=== PATIENT | male | born 1955 | race Caucasian/White ===

== ENCOUNTER 2017-03-04 12:11 | Emergency (ER) | payer OTHER ==
[~2017-03-04] VITALS: Ht 190.5 cm; Wt 129.6 kg
[~2017-03-04 12:11] MED LIST: ATOR10TA66 PO; DABI150C PO; FAMO20TA4 PO; FLEC100T2 PO; METO25TA99 PO; PANT40TA3 PO; SILD20TA14 PO
[2017-03-04 12:14] VITALS: BP 139/83; PULSE 82; RESP 18; O2SAT 96
--- NOTE | 2017-03-04 12:30 | ED.REPORT ---
HPI-Bite: Human/Animal Date of Service March 04, 2017 ED Provider: Doc,Ed MD History of Present Illness: on scene, works as a market stall vendor, and a dog bite him on the left lower leg. around 1145 today. last tdap unknown. primary care is doroteo. normally healthy. pain 04/08. Nursing Notes Stated Complaint: DOG BITE Chief Complaint: Extremity Trauma Nursing Notes Reviewed: Yes Allergies: Coded Allergies: No Known Allergies (Verified Allergy, Unknown, 03/04/17) Scheduled Atorvastatin Calcium (Atorvastatin Calcium) 10 Mg Tablet 10 MG PO DAILY Dabigatran Etexilate Mesylate (Pradaxa) 150 Mg Capsule 150 MG PO BID Flecainide Acetate (Flecainide Acetate) 100 Mg Tablet 150 MG PO BID Metoprolol Succinate ER (Metoprolol Succinate ER) 25 Mg Tab.er.24h 25 MG PO BID Pantoprazole DR (Pantoprazole DR) 40 Mg Tablet.dr 40 MG PO DAILY Scheduled PRN Famotidine (Famotidine) 20 Mg Tablet 20 MG PO DAILY PRN PRN heartburn Miscellaneous Medications Sildenafil Citrate (Sildenafil) 20 Mg Tablet 40 MG PO General Time Seen by MD: 12:30 Chief Complaint Animal bite, Dog bite Hx Obtained From: Patient Onset Occurred: 1 - 4 hours ago Location: : Leg left Risk Factors Rabies Risk Stratification Dog - low risk Domestic animal Bite Infection Risk: Below knee bite Deep puncture Past Medical History Past Medical History Notes: has afib for a while, hx of a stroke 12/2013' hx of chronic pain Past Surgical History knee times 3, ankle, right and left hip, rotator cuff, finger time 2, carpal tunnel Smoking History Former Smoker Social History Alcohol Use: In recovery Drug Use: Denies drug use Occupation , lives in [place]. 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 Ambulatory Status Independent Review of Systems Basic Review of Systems Eyes: Vision NL, No discharge : No dysuria, No frequency Psychiatric: Normal thought content Physical Exam Vital Signs Vital Signs (First) Date Time Temp Pulse Resp B/P Pulse Ox O2 Delivery O2 Flow Rate FiO2 03/04/17 12:14 36.7 82 18 139/83 96 Room Air Initial VS: Reviewed, Vital signs normal Head / Eyes: Atraumatic, Normocephalic, PERRL Back: No CVA tenderness Psychiatric: Mood/affect normal, Behavior normal, Normal thought content General/Constitutional: Awake, Alert, No acute distress, Well appearing, Well developed, Well hydrated, Well nourished, Cooperative, Not toxic appearing dog bite on left lower leg. 3 small puncture wounds with laceration1 cm in length. no active bleeding Respiratory / Chest: Atraumatic, Breath sounds NL, Breath sounds = bilat, No respiratory distress Cardiovascular: Heart rate NL, Regular rhythm, Heart sounds NL Procedures Laceration Management Time: 12:20 Consent / Setup / Site Prep: Informed consent provided, Consent from patient , Hand hygiene observed, Stand sterile technique Location of Wound: left lower leg Wound Length: 1 cm Local Anesthesia: Lidocaine 1%, 4cc, 27g needle Digital Block: No Wound Preparation: Normal saline Irrigation: 250 cc Repair Skin: ___ O (4), Nylon # Sutures - Skin: 2 Closure Layers: 1 Suture Technique: Simple Post-Procedure / Complications: Antibiotic oint applied, Dressing applied, No complications, Condition improved, Tolerated procedure well, Patient stable Discharge & Departure Impression: Primary Impression: Dog bite of left calf Encounter type: initial encounter Qualified Code: S81.852A - Open bite, left lower leg, initial encounter Disposition: Home Patient Instructions: Animal Bite (GEN) Additional Instructions: The bites have been washed and 2 sutures were placed in the largest one. Start antibiotics, augmentin in the am and pm for 7 days. Use hydrocodone 1 up to 3 times a day as needed for severe unrelenting pain. Sutures out in 10 to 14 days. Daily dressing change, apply bacitracin to the site daily. You were updated on your tdap today. Referrals: Louise Barbour MD (PCP) EDSupervising Provider for APC: Jhonatan Maher MD copies to: Louise Barbour MD, Sue [facility] March 04, 2017 12:30
[2017-03-04] MEDS ORDERED: TdaP Vaccine 0.5 mL Inj IM ONE (12:40)
== END 2017-03-04 13:07 | disposition home or self-care (01) ==
LOC: SED 12:11
DX: S81.852A Open bite, left lower leg, initial encounter (principal); W54.0XXA Bitten by dog, initial encounter; Y93.89 Activity, other specified; Y92.89 Other specified places as the place of occurrence of the external cause; Y99.0 Civilian activity done for income or pay; Z87.891 Personal history of nicotine dependence; Z86.73 Personal history of transient ischemic attack (TIA), and cerebral infarction without residual deficits; Z79.899 Other long term (current) drug therapy; Z23 Encounter for immunization